=== PATIENT | female | born 1980 | race Two or more races ===

== ENCOUNTER 2024-10-16 06:35 | Day surgery (SDC) | payer OTHER ==
[2024-10-16] MEDS ORDERED: DIPHENHYDRAMINE HCL 50 MG/ML VIAL 1ML IV ONE ×2 (09:30)
[2024-10-16] MEDS ORDERED: MIDAZOLAM HCL 2 MG/2 ML VIAL IV ONE (09:30)
[2024-10-16] MEDS ORDERED: ONDANSETRON HCL 2 MG/ML VIAL IV ONE (09:30)
[2024-10-16] MEDS ORDERED: fentaNYL CITRATE 50 MCG/ML AMPUL IV PUSH ONE (09:30)
== END 2024-10-16 10:25 | disposition home or self-care (01) ==
LOC: AMB-ENDOS 06:35
PROVIDERS: ATTEND Colon & Rectal Surgery
DX: K59.00 Constipation, unspecified (principal); K57.30 Diverticulosis of large intestine without perforation or abscess without bleeding

== ENCOUNTER 2024-11-03 10:12 | Outpatient (CLI) | payer OTHER | END 2024-11-03 10:15 | disposition home or self-care (01) | LOC: RAD 10:12 | PROVIDERS: ATTEND Colon & Rectal Surgery | DX: K59.01 Slow transit constipation (principal) ==